=== PATIENT | male | born 1945 | race Caucasian/White ===

== ENCOUNTER 2017-02-22 15:38 | Emergency (ER) | payer MEDICARE, MEDICAID ==
[2017-02-22 16:14] VITALS: BP 119/63
--- NOTE | 2017-02-22 17:00 | RAD ---
HISTORY: Cough COMPARISONS: August 23, 2015 VIEWS: 4: Frontal dual-energy and lateral views of the chest. FINDINGS: CARDIOMEDIASTINAL SILHOUETTE: The cardiomediastinal silhouette is normal. SCOUT: The scout are normal. PLEURA: The costophrenic angles are sharp. No pleural abnormalities are noted. LUNG PARENCHYMA: The lungs are clear. ABDOMEN: There is gaseous distention of the colon similar to previous examinations. BONES AND SOFT TISSUES: No bone or soft tissue abnormalities are noted. OTHER: None. IMPRESSION: NO ACTIVE CARDIOPULMONARY DISEASE.
--- NOTE | 2017-02-22 17:16 | UC ---
Respiratory Complaint HPI - HPI Summary HPI Summary: 72 year old male presents with cough. states cough worsening over 1 week, concerned about pneumonia. He has pneumonia about 1-2 times per year and does aspirate often when he eats. He is brought by a worker at [facility]. No fever. No vomiting. (+) COugh, congestion, phlegm. [ End ] - History of Current Complaint Chief Complaint: UCRespiratory Stated Complaint: COUGH Time Seen by Provider: 02/22/17 16:24 Hx Obtained From: Patient, Family/County Agent Onset/Duration: Gradual Onset Timing: Constant Severity Initially: Moderate Severity Currently: Moderate Character: Sputum Description: - per staff he can not bring it up Aggravating Factors: Nothing Alleviating Factors: Nothing Associated Signs And Symptoms: Positive: Fever, URI, Nasal Congestion Related History: Healthcare Acquired Pneumonia: Lives at Group Home - [facility] - Allergies/Home Medications Allergies/Adverse Reactions: Allergies Allergy/AdvReac Type Severity Reaction Status Date / Time Aspirin Allergy Unknown Verified 02/22/17 16:14 Reaction Details Shellfish Allergy Allergy Hives Verified 02/22/17 16:14 Home Medications: Home Medications Droxidopa [Northera] 100 mg PO TID 02/22/17 [History Confirmed 02/22/17] PMH/Surg Hx/FS Hx/Imm Hx Previously Healthy: Yes Respiratory History: Pneumonia - Surgical History Surgical History: Yes Surgery Procedure, Year, and Place: skin flap - Family History Known Family History: Positive: Unknown, Other - postive FMH of laceration - Social History Alcohol Use: None Substance Use Type: None Smoking Status (MU): Never Smoked Tobacco - Immunization History Most Recent Influenza Vaccination: 04/2015 Review of Systems Constitutional: Fatigue ENT: Nasal Discharge Respiratory: Cough All Other Systems Reviewed And Are Negative: Yes Physical Exam Triage Information Reviewed: Yes Appearance: Well-Appearing, No Pain Distress, Well-Nourished Vital Signs: Initial Vital Signs Temp 100 F 02/22/17 16:08 Pulse 111 02/22/17 16:08 Resp 18 02/22/17 16:08 BP 119/63 02/22/17 16:08 Pulse Ox 97 02/22/17 16:08 Vital Signs Reviewed: Yes Eye Exam: Normal ENT Exam: Normal Dental Exam: Normal Neck exam: Normal Neck: Positive: 1 Respiratory: Positive: Chest non-tender, No respiratory distress, No accessory muscle use, Rhonchi - LLL. Negative: Respiratory distress, Decreased breath sounds, Accessory muscle use Cardiovascular Exam: Normal Musculoskeletal Exam: Normal Neurological Exam: Normal Psychological Exam: Normal Skin Exam: Normal UC Diagnostic Evaluation - Laboratory O2 Sat by Pulse Oximetry: 97 Respiratory Course/Dx - Course Course Of Treatment: with history of CAP , aspiration and his living situation high risk and treat aggressively at this time. no labs as an option here but vitals stable and interacint normal for him with me and staff. staff is aware if fever tomorrow or worsening sx or not improved in 24 hours to go to ED for further eval and work up and they agree. we will try to keep out of ED if possible but low threshold to go to ED if sx worsen - Differential Dx/Diagnosis Differential Diagnosis/HQI/PQRI: Asthma, Bronchitis, Lower Resp Infection, Sinusitis Provider Diagnoses: Bronchitis / history of community aquired pneumonia living in residential Discharge - Discharge Plan Condition: Good Disposition: HOME Prescriptions: Levofloxacin TAB* [Levaquin TAB*] 750 mg PO DAILY #10 tab Patient Education Materials: Acute Bronchitis (ED) Referrals: AAMIR Ferrera [Primary Care Provider] - 4 Days
== END 2017-02-22 17:49 | disposition home or self-care (01) ==
LOC: UCCORT 15:38
DX: J40 Bronchitis, not specified as acute or chronic (principal); R53.83 Other fatigue; R09.81 Nasal congestion; Z88.6 Allergy status to analgesic agent; Z91.013 Allergy to seafood
CPT/HCPCS: 71020; 99212; G0463

== ENCOUNTER 2017-08-04 13:45 | Emergency (ER) | payer MEDICARE, MEDICAID ==
[2017-08-04 16:34] VITALS: BP 124/65
--- NOTE | 2017-08-04 16:46 | UC ---
HPI Febrile Illness - HPI Summary HPI Summary: Started with a fever today. Given tylenol. Coughing. Poor PO intake. Drooling a lot. 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 Taken: Acetaminophen: - Allergy/Home Medications Allergies/Adverse Reactions: Allergies Allergy/AdvReac Type Severity Reaction Status Date / Time aspirin Allergy Unknown Verified 08/04/17 16:13 Reaction Details shellfish derived Allergy Unknown Verified 08/04/17 16:13 Reaction Details Home Medications: Home Medications Droxidopa [Northera] 400 mg PO TID 08/04/17 [History Confirmed 08/04/17] PARoxetine HCL TAB* [Paxil TAB*] 20 mg PO DAILY 08/04/17 [History Confirmed 09/16] Zinc Oxide [Desitin] 57 gm TP TID 08/04/17 [History Confirmed 08/04/17] PMH/Surg Hx/FS Hx/Imm Hx Previously Healthy: No Respiratory History: COPD GI/ History: Diverticulitis Other Neurological History: Mental retardation. - Surgical History Surgical History: Yes Surgery Procedure, Year, and Place: skin flap - Family History Known Family History: Positive: Unknown, Other - postive FMH of laceration - Social History Occupation: Disabled Lives: Prison Alcohol Use: None Substance Use Type: None Smoking Status (MU): Never Smoked Tobacco Have You Smoked in the Last Year: No - Immunization History Most Recent Influenza Vaccination: 04/2015 Review of Systems Constitutional: Fever Respiratory: Cough Cardiovascular: Chest Pain - when asked if he hurt and where, he pointed over his left anterior chest. Motor: Weakness Is Patient Immunocompromised?: No All Other Systems Reviewed And Are Negative: Yes Physical Exam Triage Information Reviewed: Yes Appearance: Well-Appearing, No Pain Distress, Well-Nourished Vital Signs: Initial Vital Signs Temp 101 F 08/04/17 16:27 Pulse 104 08/04/17 16:27 Resp 24 08/04/17 16:27 BP 124/65 08/04/17 16:27 Pulse Ox 95 02/03/18 16:27 Vital Signs Reviewed: Yes Eyes: Positive: Conjunctiva Clear ENT: Positive: TMs normal Neck exam: Normal Respiratory Exam: Normal Cardiovascular: Positive: Murmur:Sys:Grade _?_/ - 2/6 Abdomen Description: Positive: Nontender, No Organomegaly, Soft Musculoskeletal: Positive: Strength Limited @ - in wheelchair Neurological: Positive: Other: - non-verbal Psychological: Positive: Other: - able to follow directions. Skin Exam: Normal Diagnostics - Laboratory Diagnostic Studies Completed/Ordered: Rapid flu negative - Radiology No standard instances Xray Interpretation: Positive (See Comments) - Probable new RML infiltrate Radiology Interpretation Completed By: Radiologist - EKG Cardiac Rate: Tachycardia Cardiac Rhythm: Sinus: Normal Ectopy: None ST Segment: Non-Specific - lateral T-wave flattening. Course/Dx - Febrile Illness Differential Diagnoses: Abd. Infection, Bacteremia, Pneumonia, Sepsis - Diagnoses Clinic Provider Diagnoses: Pneumonia organism unspecified Discharge - Discharge Plan Condition: Guarded Disposition: HOME Prescriptions: Levofloxacin TAB* [Levaquin TAB*] 500 mg PO DAILY #10 tab Patient Education Materials: Bacterial Pneumonia (ED), Levofloxacin (By mouth) Referrals: AAMIR Ferrera [Primary Care Provider] - Additional Instructions: IF HE IS ANY MORE SHORT OF BREATH OR LOOKS WORSE HE WOULD NEED TO GO TO THE ER. HE SHOULD NOT COME BACK TO URGENT CARE.
[2017-08-04] MEDS ORDERED: Levofloxacin TAB* 500 MG PO ONE ×2 (17:49→18:10)
--- NOTE | 2017-08-04 17:52 | RAD ---
INDICATION: Fever and cough COMPARISON: Most recent comparison chest x-rays dated February 22, 2017 TECHNIQUE: Single AP view of the chest was obtained. FINDINGS: New since the most previous chest x-ray is density along the right heart border that somewhat silhouettes the right heart border as well as the right mediastinum. There are additional faint patchy densities at the lower right lung. The left lung appears to be grossly clear. The pulmonary vasculature may be slightly engorged and indistinct. Again seen are innumerable dilated loops of air-filled bowel which are similar to at least the 2 most recent chest x-rays. IMPRESSION: 1. DENSITY OBSCURING THE RIGHT HEART BORDER THAT WAS NOT DEFINITELY SEEN ON THE MOST RECENT FEBRUARY 22, 2017 CHEST X-RAY COULD BE CONSOLIDATION/PNEUMONIA IN THE CORRECT CLINICAL SETTING. 2. MILD INTERVAL ENGORGEMENT AND INDISTINCTION OF THE PULMONARY VASCULATURE RELATIVE TO THE PREVIOUS CHEST X-RAY WITHOUT DEFINITE CARDIOMEGALY. THIS APPEARANCE COULD BE SEEN IN THE SETTING OF MILD VASCULAR CONGESTION. 3. DILATED LOOPS OF AIR-FILLED BOWEL ARE SIMILAR IN APPEARANCE TO PRIOR CHEST X-RAYS GOING BACK TO AT LEAST JULY 21, 2015.
== END 2017-08-04 18:22 | disposition home or self-care (01) ==
LOC: UCCORT 13:45
DX: J18.9 Pneumonia, unspecified organism (principal); R07.9 Chest pain, unspecified; F79 Unspecified intellectual disabilities
CPT/HCPCS: 71045; 87502; 93005; 99212; G0463